=== PATIENT | female | born 1940 | race Caucasian/White ===

== ENCOUNTER 2016-08-06 14:40 | Inpatient (IN) | payer OTHER ==
[2016-08-06] MEDS ORDERED: ASPIRIN 81 MG CHEWABLE TABLETS PO ONE (14:54)
--- NOTE | 2016-08-06 14:54 | PDOC ---
History of Present Illness - General History Source: Patient, Old Records Exam Limitations: No Limitations - History of Present Illness Initial Comments: 08/06/16 14:55 The patient is a 76-year-old woman with a significant past medical history of hypertension, hypercholesterolemia, asthma, chronic obstructive pulmonary disease (inhaler PRN), and fatty liver who was sent to the emergency department by her [employer], Dr. Mello further evaluation of abnormal electrocardiogram changes today. Patient reports that she is in her usual state of health. She went to her primary care physician's office, Dr. Gabriel Zhao for a pre operative clearance for her cardiac catherization. She was informed that she had ST depression changes and was advised to present to the ER. Patient states that at baseline she gets short of breath on exertion and is unable to walk only but a few feet and occasionally experiences chest pain. No fever, chills, weakness, chest pain, lightheadedness, dizziness, palpitations, headaches, neck pain, visual changes, abdominal pain, nausea, vomiting, diarrhea. No urinary complaints. Allergies: Penicillin Past Surgical History: Right hips orthopedic surgery. Appendectomy. Social History: Never smoked. No ETOH and recreational drug use. Primary Care Physician: Dr. Gabriel Zhao [employer]: Dr. Robert Mello <Reyna York - Last Filed: 08/06/16 15:23> <Uriel Arvizu - Last Filed: 08/06/16 16:26> - General Chief Complaint: Shortness of Breath Stated Complaint: CHANGE IN EKG Time Seen by Provider: 08/06/16 14:52 Past History <Reyna York - Last Filed: 08/06/16 15:23> - Past Medical History Anemia: No Asthma: Yes Cancer: No Cardiac Disorders: No CVA: No COPD: Yes CHF: No Dementia: No Diabetes: Yes GI Disorders: Yes Disorders: No HTN: Yes Hypercholesterolemia: Yes Liver Disease: Yes (FATTY;HEPATOMEGALY) Seizures: No Thyroid Disease: No - Surgical History Abdominal Surgery: Yes (INTESTINAL OBSTR.) Appendectomy: Yes Cardiac Surgery: No Cholecystectomy: No Lung Surgery: No Neurologic Surgery: No Orthopedic Surgery: Yes (RIGHT HIP 01/2014) - Psycho/Social/Smoking Cessation Hx Suicidal Ideation: No Smoking History: Never smoked Have you smoked in the past 12 months: No If you are a former smoker, when did you quit?: 1989 Hx Alcohol Use: No Drug/Substance Use Hx: No Substance Use Type: None Hx Substance Use Treatment: No <Uriel Arvizu - Last Filed: 08/06/16 16:26> - Past Medical History Allergies/Adverse Reactions: Allergies Allergy/AdvReac Type Severity Reaction Status Date / Time Penicillins Allergy Mild Hives Verified 08/06/16 15:02 Home Medications: Ambulatory Orders Alendronate Na [Fosamax (Weekly)] 70 mg PO Q7D 08/15/13 Atenolol [Tenormin -] 25 mg PO DAILY 08/15/13 Atorvastatin Ca [Lipitor] 10 mg PO DAILY 08/15/13 Diazepam [Valium] 5 mg PO BID PRN 08/15/13 Montelukast Na [Singulair -] 10 mg PO DAILY 08/15/13 Potassium Chloride [K-Dur] 20 meq PO TID 08/15/13 Theophylline Anhydrous [Theophylline] 200 mg PO BID 08/15/13 Budesonide/Formeterol Fumarate [SYMBICORT 80/4.5mcg -] 2 inh IH BID #0 inhaler 08/21/13 Ascorbic Acid [Vitamin C -] 1,000 mg PO DAILY 11/07/13 Cholecalciferol (Vitamin D3) [Vitamin D3] 2,000 unit PO DAILY 11/07/13 Cyanocobalamin [Vitamin B12 -] 500 mcg PO DAILY 11/07/13 Folic Acid - 1 mg PO DAILY 11/07/13 Metformin HCl [Metformin HCl ER] 2 tab PO TID 11/07/13 Oxycodone HCl/Acetaminophen [Percocet 5-325 mg Tablet] 1 - 2 tab PO Q4H #30 tablet 11/16/13 Terbutaline Sulfate [Brethine -] 2.5 mg PO QID 01/16/14 Apixaban [Eliquis -] 5 mg PO BID #0 06/07/14 [place]-3 Fatty Acids/Fish Oil [Fish Oil 1,000 mg Softgel] 1,200 each PO DAILY #0 06/07/14 Vitamin E 400 unit PO DAILY #0 06/07/14 Albuterol Sulfate [Proair Hfa -] 1 - 2 inh PO QID 08/25/14 Cyanocobalamin Vit B-12 Inj. [Vitamin B12 Injection -] 1,000 mcg IJ MONTHLY Sulfasalazine 2 tab PO DAILY 08/25/14 Meclizine HCl [Verticalm] 25 mg PO DAILY PRN #5 tablet 03/19/16 Review of Systems - Review of Systems Constitutional: No: Chills, Fever Respiratory: Yes: Cough (chronic), Shortness of Breath Cardiac (ROS): Yes: Chest Pain. No: Edema All Other Systems: Reviewed and Negative <Uriel Arvizu - Last Filed: 08/06/16 16:26> *Physical Exam - Physical Exam Comments: 08/06/16 14:59 GENERAL: The patient is awake, alert, and fully oriented, in no acute distress. HEAD: Normal with no signs of trauma. EYES: Pupils equal, round and reactive to light, extraocular movements intact, sclera anicteric, conjunctiva clear with no pallor. ENT: Ears normal, nares patent, oropharynx clear without exudates. Moist mucous membranes. NECK: Normal range of motion, supple without lymphadenopathy, JVD, or masses. LUNGS: Scattered inspiratory and expiratory wheezes but no crackles. HEART: Regular rate and rhythm, normal S1 and S2 without murmur or rub. ABDOMEN: Soft/nontender/nondistended. BS wnl. No guarding or rebound. No palpable masses. No hepatosplenomegaly. EXTREMITIES: Normal range of motion, no edema. No clubbing or cyanosis. No cords, erythema, or tenderness. NEUROLOGICAL: Cranial nerves II through XII grossly intact. Normal speech. PSYCH: Normal mood, normal affect. SKIN: Warm, Dry, normal turgor, no rashes or lesions noted. <Reyna York - Last Filed: 08/06/16 15:23> Heart Score/ECG Review #1 ECG reviewed & interpreted by me at: 14:53 General ECG Interpretation: Sinus Rhythm, Normal Rate (94), Normal Intervals, No acute ischemic changes (ST depression in V4 through V6) Compared to previous ECG there are: Changes noted (c/w 03/21) <Uriel Arvizu - Last Filed: 08/06/16 16:26> ED Treatment Course - LABORATORY CBC & Chemistry Diagram: 08/06/16 15:12 08/06/16 15:12 <Uriel Arvizu - Last Filed: 08/06/16 16:26> Medical Decision Making - Medical Decision Making 08/06/16 15:09 A portion of this note was documented by scribe services under my direction. I have reviewed the details of the note, within reason, and agree with the documentation with the following case summary and management plan written by me. 76-year-old female with history of hypertension, high cholesterol, COPD, lupus anticoagulant and factor V Leiden presents from Dr. Zhao's office after she was found to have new ST depressions on routine EKG. The patient has known abnormal stress test, catheterization pending given her hypercoagulable disorders. She has baseline dyspnea on exertion and occasionally has chest pain , is not on oxygen at home for her COPD. Exam as noted. Will proceed with admission for further cardiac evaluation/management. Does not take aspirin at home. labs, ua ekg, cxr asa admission. Reviewed with Dr. Riojas at bedside, agrees with asa, recommends starting heparin tomorrow (took xarelto today), plan for cath 08/06/16 16:25 Troponin negative, remaining labs are within normal limits. Will proceed with plan for inpatient telemetry to Dr. Zhao. <Uriel Arvizu - Last Filed: 08/06/16 16:26> *DC/Admit/Observation/Transfer - Attestations Scribe Attestion: 08/06/16 15:00 Documentation prepared by Reyna York, acting as medical accounting clerk for Uriel Arvizu MD. <Reyna York - Last Filed: 08/06/16 15:23> - Discharge Dispostion Admit: Yes <Uriel Arvizu - Last Filed: 08/06/16 16:26> Diagnosis at time of Disposition: ST segment changes on electrocardiogram COPD (chronic obstructive pulmonary disease) Qualifiers: COPD type: unspecified COPD Qualified Code(s): J44.9 - Chronic obstructive pulmonary disease, unspecified - Discharge Dispostion Condition at time of disposition: Fair - Referrals Referrals: Gabriel Zhao MD [Primary Care Provider] -
[2016-08-06] MEDS ORDERED: ASPIRIN 81 MG CHEWABLE TABLETS ONE (15:13)
[2016-08-06 15:38] LABS: BASOPHIL 0.6 % (0-2.0); EOSINOPHIL 1.4 % (0-4.5); MCH 25.3 pg (25.7-33.7); MCHC 32.2 g/dl (32.0-36.0); MEAN CELL VOLUME 78.7 fl (80-96); NEUTROPHILS 67.2 % (42.8-82.8); PLATELET COUNT 180 K/MM3 (134-434); RDW 15.9 % (11.6-15.6); WHITE BLOOD COUNT 5.4 K/mm3 (4.0-10.0)
--- NOTE | 2016-08-06 15:57 | CON.CARD ---
Consult Consult Specialty:: Cardiology Referred by:: Dr Zhao Reason for Consultation:: CAD - History of Present Illness Chief Complaint: shortness of breath, ecg changes History of Present Illness: 76 yo F w sig PMH of HTN, DM, HLD, DVT (2013) in the setting of thrombophilia on systemic AC (s/p IVC filter prior to hip surgery), Heterozygote Factor V Leiden seen by Dr Tez Adamson in the past, elevated anti-cardiolipin, Lupus anticoagulant, and Iron deficiency anemia seen in Dr Zhao's office in the cardiology clinic for follow up found with SOB/JUAREZ for one week due to wheezing and recent URI, also found with ST depressions on ECG v4-v6. Sent to ER for evaluation. Previously an angiogram was recommended for coronary anatomy evaluation due to chronic chronic JUAREZ and occasional episodes of atypical CP in the setting of abnormal NST on 06/30/16 (small to moderate zone of reversible defect from the base to the apex of the anterior wall compatible with mild intensity ischemia) but this was deferred due to issues related to her Xarelto. Echo - 12/2015: Normal LV size and function (EF: 59%). Concentric LVH. Impaired diastolic function. Mild AI. - History Source History Provided By: Patient, Medical Record - Past Medical History Cardio/Vascular: Yes: HTN, Hyperlipdemia, Other (ASHD) Musculoskeletal: Yes: Chronic low back pain Endocrine: Yes: Diabetes Mellitus - Past Surgical History Past Surgical History: Yes: Appendectomy, Tonsillectomy - Alcohol/Substance Use Hx Alcohol Use: No - Smoking History Smoking history: Never smoked Have you smoked in the past 12 months: No If you are a former smoker, when did you quit?: 1989 Home Medications - Allergies Allergies/Adverse Reactions: Allergies Allergy/AdvReac Type Severity Reaction Status Date / Time Penicillins Allergy Mild Hives Verified 08/06/16 15:02 - Home Medications Home Medications: Ambulatory Orders Alendronate Na [Fosamax (Weekly)] 70 mg PO Q7D 08/15/13 Atenolol [Tenormin -] 25 mg PO DAILY 08/15/13 Atorvastatin Ca [Lipitor] 10 mg PO DAILY 08/15/13 Diazepam [Valium] 5 mg PO BID PRN 08/15/13 Montelukast Na [Singulair -] 10 mg PO DAILY 08/15/13 Potassium Chloride [K-Dur] 20 meq PO TID 08/15/13 Theophylline Anhydrous [Theophylline] 200 mg PO BID 08/15/13 Budesonide/Formeterol Fumarate [SYMBICORT 80/4.5mcg -] 2 inh IH BID #0 inhaler 08/21/13 Ascorbic Acid [Vitamin C -] 1,000 mg PO DAILY 11/07/13 Cholecalciferol (Vitamin D3) [Vitamin D3] 2,000 unit PO DAILY 11/07/13 Cyanocobalamin [Vitamin B12 -] 500 mcg PO DAILY 11/07/13 Folic Acid - 1 mg PO DAILY 11/07/13 Metformin HCl [Metformin HCl ER] 2 tab PO TID 11/07/13 Oxycodone HCl/Acetaminophen [Percocet 5-325 mg Tablet] 1 - 2 tab PO Q4H #30 tablet 11/16/13 Terbutaline Sulfate [Brethine -] 2.5 mg PO QID 01/16/14 Apixaban [Eliquis -] 5 mg PO BID #0 06/07/14 [place]-3 Fatty Acids/Fish Oil [Fish Oil 1,000 mg Softgel] 1,200 each PO DAILY #0 06/07/14 Vitamin E 400 unit PO DAILY #0 06/07/14 Albuterol Sulfate [Proair Hfa -] 1 - 2 inh PO QID 08/25/14 Cyanocobalamin Vit B-12 Inj. [Vitamin B12 Injection -] 1,000 mcg IJ MONTHLY Sulfasalazine 2 tab PO DAILY 08/25/14 Meclizine HCl [Verticalm] 25 mg PO DAILY PRN #5 tablet 03/19/16 Review of Systems - Review of Systems Constitutional: reports: No Symptoms, Chills Eyes: reports: No Symptoms HENT: reports: No Symptoms Neck: reports: No Symptoms Cardiovascular: reports: Shortness of Breath Respiratory: reports: No Symptoms Vital Signs: Vital Signs Temperature 98.0 F 08/06/16 14:40 Pulse Rate 102 H 08/06/16 14:40 Respiratory Rate 18 08/06/16 14:40 Blood Pressure 167/83 08/06/16 14:40 O2 Sat by Pulse Oximetry (%) 100 08/06/16 14:40 Constitutional: Yes: No Distress Eyes: Yes: WNL HENT: Yes: Atraumatic, Normocephalic Neck: Yes: Supple Respiratory: Yes: Rhonchi (bilateral with mild expiratory wheezes.) Gastrointestinal: Yes: Normal Bowel Sounds Renal/: Yes: WNL Cardiovascular: Yes: Regular Rate and Rhythm JVD: No Carotid Bruit: No PMI: Non-Displaced Heart Sounds: Yes: S1, S2 Musculoskeletal: Yes: WNL Extremities: Yes: WNL Integumentary: Yes: WNL - Other Data Labs, Other Data: CBC, BMP 08/06/16 15:12 Imaging - Results Chest X-ray: Pending EKG: Report Reviewed (nsr [address] depressions v4-v6.) Problem List - Problems (1) Unstable angina Assessment/Plan: Hold Xarelto. Start IV heparin tomorrow for bridging until cath. ASA. continue atenolol, increase imdur to 60 mg daily, add ranexa 500 mg bid. Plan is for transfer to [facility] for cath possible PCI thursday08/08/16. CXR, BNP, CPK/David x 3. Heme to comment on AC. If drug eluting stent is placed the patient will need ASA and Plavix for at least one month then would stop asa and continue plavix with Xarelto. Hold metformin before cath. Continue Amaryl. Consider Jardiance post PCI if CAD in light of recent data. Code(s): I20.0 - UNSTABLE ANGINA
[2016-08-06 15:59] LABS: ALBUMIN 3.8 g/dl (3.4-5.0); ANION GAP 9 (8-16); CALCIUM 9.8 mg/dL (8.5-10.1); CO2 27 mmol/L (21-32); COCKROFT - GAULT 87.7115; CREATININE 0.8 mg/dL (0.55-1.02); GLUCOSE,RANDOM 90 mg/dL (74-106); MAGNESIUM 1.5 mg/dL (1.8-2.4); SGOT/AST 17 U/L (15-37); SGPT/ALT 24 U/L (12-78)
[2016-08-06 16:03] LABS: ALK PHOS 120 U/L (45-117); BILIRUBIN,TOTAL 0.5 mg/dL (0.2-1.0); TOT PROT 7.3 g/dl (6.4-8.2); TROPONIN I < 0.02 ng/ml (0.00-0.05)
[2016-08-06 16:04] LABS: INR 1.57 (0.82-1.09); PROTHROMBIN TIME (PATIENT) 17.4 SEC (9.98-11.88)
[2016-08-06] MEDS ORDERED: HEPARIN NA (PORCINE) 5,000 UNITS/ML 1ML VIAL IVPUSH PRN ×2 (19:44)
[2016-08-06] MEDS: ATORVASTATIN CA 40 MG TABLET (FP) PO SCH (21:40)
[2016-08-06] MEDS: MONTELUKAST NA 10 MG TABLET PO SCH (21:40)
[2016-08-06] MEDS: INSULIN SLIDING SCALE (NOVOLOG) 1 VIAL SQ SCH (21:47)
[2016-08-06 22:00] LABS: TROPONIN I < 0.02 ng/ml (0.00-0.05)
[2016-08-07 01:34] VITALS: BMI 33.2
[2016-08-07] MEDS: INSULIN SLIDING SCALE (NOVOLOG) 1 VIAL SQ SCH ×4 (06:29→21:36)
[2016-08-07 07:39] LABS: BASOPHIL 0.8 % (0-2.0); EOSINOPHIL 2.4 % (0-4.5); MCH 26.3 pg (25.7-33.7); MCHC 33.8 g/dl (32.0-36.0); PLATELET COUNT 167 K/MM3 (134-434); RDW 15.6 % (11.6-15.6); WHITE BLOOD COUNT 6.1 K/mm3 (4.0-10.0)
--- NOTE | 2016-08-07 07:54 | HP ---
Admitting History and Physical - Admission History of Present Illness: 76 yo F w sig PMH of HTN, DM, HLD, DVT (2014) in the setting of thrombophilia on systemic AC (s/p IVC filter prior to hip surgery), Heterozygote Factor V Leiden seen by Dr Tez Adamson in the past, elevated anti-cardiolipin, Lupus anticoagulant, and Iron deficiency anemia ssen by dr monroy for follow up found with SOB/JUAREZ for one week due to wheezing and recent URI, also found with ST depressions on ECG v4-v6. Sent to ER for evaluation. This am pt ststes feels better--in bed no cp at rest - Past Medical History Cardiovascular: Yes: CAD (positive stress test), HTN, Hyperlipdemia, Other (ASHD ) Pulmonary: Yes: COPD Heme/Onc: Yes: B12 Deficiency, Other (DVT) Musculoskeletal: Yes: Chronic low back pain Endocrine: Yes: Diabetes Mellitus - Past Surgical History Past Surgical History: Yes: Appendectomy, Tonsillectomy - Smoking History Smoking history: Former smoker Have you smoked in the past 12 months: No If you are a former smoker, when did you quit?: 1989 - Alcohol/Substance Use Hx Alcohol Use: No Home Medications - Allergies Allergies/Adverse Reactions: Allergies Allergy/AdvReac Type Severity Reaction Status Date / Time Penicillins Allergy Mild Hives Verified 08/06/16 15:02 - Home Medications Home Medications: Ambulatory Orders Albuterol Sulfate Inhaler - [Ventolin Hfa Inhaler -] 2 inh PO Q6H PRN 08/06/16 Alendronate Sodium [Binosto] 70 mg PO WEEKLY 08/06/16 Atenolol [Tenormin -] 50 mg PO DAILY 08/06/16 Atorvastatin Ca [Lipitor] 20 mg PO HS 08/06/16 Cyanocobalamin (Vitamin B-12) [Cyanocobalamin Injection] 1,000 mcg IJ MONTHLY Folic Acid 1 mg PO DAILY 08/06/16 Glimepiride [Amaryl -] 4 mg PO DAILY@0700 08/06/16 Isosorbide Mononitrate [Isosorbide Mononitrate ER] 30 mg PO DAILY 08/06/16 Lisinopril [Prinivil -] 40 mg PO DAILY 08/06/16 Metformin HCl 500 mg PO BID 08/06/16 Montelukast Na [Singulair -] 10 mg PO HS 08/06/16 Nitroglycerin 0.4 mg SL ASDIR 08/06/16 [place]-3 Fatty Acids/Fish Oil [Eql [place]-3 Fish Oil 1,000 mg] 1 each PO BID 08/06 Rivaroxaban [Xarelto -] 20 mg PO DAILY 08/06/16 Sulfasalazine 500 mg PO BID 08/06/16 Terbutaline Sulfate 2.5 mg PO Q6H 08/06/16 Theophylline Anhydrous 200 mg PO BID 08/06/16 Physical Examination Vital Signs: Vital Signs Temperature 98.3 F 08/07/16 06:00 Pulse Rate 83 08/07/16 06:00 Respiratory Rate 18 08/07/16 06:00 Blood Pressure 122/65 08/07/16 06:00 O2 Sat by Pulse Oximetry (%) 94 L 08/06/16 21:00 Cardiovascular: Yes: Murmur, S1, S2 Respiratory: Yes: Rhonchi Gastrointestinal: Yes: Normal Bowel Sounds, Soft. No: Tenderness Edema: No Labs: CBC, BMP 08/07/16 05:35 Problem List - Problems (1) ST segment changes on electrocardiogram Assessment/Plan: STRESS TEST POSITIVE HEPARIN CONTINUE WITH CURRENT MEDS FOR CATH IN AM HOLD XARELTO Code(s): R94.31 - ABNORMAL ELECTROCARDIOGRAM [ECG] [EKG] (2) COPD (chronic obstructive pulmonary disease) Assessment/Plan: [facility] PULM CONSULT Code(s): J44.9 - CHRONIC OBSTRUCTIVE PULMONARY DISEASE, UNSPECIFIED Qualifiers : COPD type: unspecified COPD Qualified Code(s): J44.9 - Chronic obstructive pulmonary disease, unspecified (3) Diabetes Assessment/Plan: [facility] Code(s): E11.9 - TYPE 2 DIABETES MELLITUS WITHOUT COMPLICATIONS (4) Hypercoagulable state Assessment/Plan: HOLD XARELTO HEPARIN Code(s): D68.59 - OTHER PRIMARY THROMBOPHILIA
[2016-08-07 08:00] LABS: ALBUMIN 3.4 g/dl (3.4-5.0); ANION GAP 8 (8-16); CALCIUM 8.8 mg/dL (8.5-10.1); CO2 28 mmol/L (21-32); GLUCOSE,RANDOM 112 mg/dL (74-106)
[2016-08-07 08:09] LABS: ALK PHOS 104 U/L (45-117); BILIRUBIN,TOTAL 0.5 mg/dL (0.2-1.0); CHOLESTEROL 86 mg/dL (50-200); CREATININE 0.8 mg/dL (0.55-1.02); LDL CHOLESTEROL (ONLY SJRH) 39 mg/dL (5-100); SGOT/AST 15 U/L (15-37); SGPT/ALT 18 U/L (12-78); THYROID STIMULATING HORMONE 0.67 uIU/ml (0.358-3.74); TOT PROT 6.5 g/dl (6.4-8.2); TROPONIN I < 0.02 ng/ml (0.00-0.05)
[2016-08-07] MEDS ORDERED: PT OWN MED DRAWER 7, Y5N ONE ×2 (10:33→21:30)
[2016-08-07] MEDS: HEPARIN INFUSION - 500 ML IVPB SCH ×2 (10:45→19:45)
[2016-08-07] MEDS: ASPIRIN COATED 81 MG TABLET.EC PO SCH (10:55)
[2016-08-07] MEDS: FOLIC ACID 1 MG TABLET (FP) PO SCH (10:55)
[2016-08-07] MEDS: ISOSORBIDE MONONITRATE 60 MG TAB.SR.24H (FP) PO SCH (10:56)
[2016-08-07] MEDS: THEOPHYLLINE ANHYDROUS 200 MG CAP.ER.24H PO SCH (10:56)
[2016-08-07] MEDS: LISINOPRIL 20 MG TABLET (FP) PO SCH (10:56)
--- NOTE | 2016-08-07 13:23 | CON.PULM ---
Consult Consult Specialty:: PULM/CCM Referred by:: KATHIA Reason for Consultation:: SOB - History of Present Illness Chief Complaint: SOB /CP History of Present Illness: 76 F, HTN, DM, HLD, DVT (2013) due to thrombophilia on systemic AC (s/p IVC filter prior to hip surgery), and heterozygote Factor V Leiden, elevated anti- cardiolipin, Lupus anticoagulant, and Iron deficiency anemia. Reports having URI symptoms for over 1 1/2 weeks. Congested cough has been lingering. No fever or chills. No hemoptysis. Apparently found to have lateral ST segment depressions. CT : emphysematous changes /no acute process. - History Source History Provided By: Patient Limitations to Obtaining History: No Limitations - Past Medical History Cardio/Vascular: Yes: CAD (positive stress test), HTN, Hyperlipdemia, Other ( ASHD) Pulmonary: Yes: Bronchitis, COPD. No: O2 Dependent Musculoskeletal: Yes: Chronic low back pain Endocrine: Yes: Diabetes Mellitus - Past Surgical History Past Surgical History: Yes: Appendectomy, Tonsillectomy - Alcohol/Substance Use Hx Alcohol Use: No - Smoking History Smoking history: Former smoker Have you smoked in the past 12 months: No If you are a former smoker, when did you quit?: 1989 Home Medications - Allergies Allergies/Adverse Reactions: Allergies Allergy/AdvReac Type Severity Reaction Status Date / Time Penicillins Allergy Mild Hives Verified 08/06/16 15:02 - Home Medications Home Medications: Ambulatory Orders Albuterol Sulfate Inhaler - [Ventolin Hfa Inhaler -] 2 inh PO Q6H PRN 08/06/16 Alendronate Sodium [Binosto] 70 mg PO WEEKLY 08/06/16 Atenolol [Tenormin -] 50 mg PO DAILY 08/06/16 Atorvastatin Ca [Lipitor] 20 mg PO HS 08/06/16 Cyanocobalamin (Vitamin B-12) [Cyanocobalamin Injection] 1,000 mcg IJ MONTHLY Folic Acid 1 mg PO DAILY 08/06/16 Glimepiride [Amaryl -] 4 mg PO DAILY@0700 08/06/16 Isosorbide Mononitrate [Isosorbide Mononitrate ER] 30 mg PO DAILY 08/06/16 Lisinopril [Prinivil -] 40 mg PO DAILY 08/06/16 Metformin HCl 500 mg PO BID 08/06/16 Montelukast Na [Singulair -] 10 mg PO HS 08/06/16 Nitroglycerin 0.4 mg SL ASDIR 08/06/16 [place]-3 Fatty Acids/Fish Oil [Eql [place]-3 Fish Oil 1,000 mg] 1 each PO BID 08/06 Rivaroxaban [Xarelto -] 20 mg PO DAILY 08/06/16 Sulfasalazine 500 mg PO BID 08/06/16 Terbutaline Sulfate 2.5 mg PO Q6H 08/06/16 Theophylline Anhydrous 200 mg PO BID 08/06/16 Review of Systems - Review of Systems Constitutional: reports: Malaise, Weakness. denies: Chills, Fever, Night Sweats Eyes: reports: No Symptoms HENT: reports: No Symptoms Neck: reports: No Symptoms Cardiovascular: reports: Chest Pain, Shortness of Breath. denies: Edema, Palpitations Respiratory: reports: Cough, Snoring, SOB, SOB on Exertion, Wheezing. denies: Hemoptysis Gastrointestinal: reports: No Symptoms Genitourinary: reports: No Symptoms Breasts: reports: No Symptoms Reported Musculoskeletal: reports: No Symptoms Integumentary: reports: No Symptoms Neurological: reports: No Symptoms Endocrine: reports: No Symptoms Hematology/Lymphatic: reports: No Symptoms Psychiatric: reports: No Symptoms Physical Exam Vital Sings: Vital Signs Temperature 98.3 F 08/07/16 06:00 Pulse Rate 83 08/07/16 06:00 Respiratory Rate 18 08/07/16 06:00 Blood Pressure 122/65 08/07/16 06:00 O2 Sat by Pulse Oximetry (%) 94 L 08/06/16 21:00 Constitutional: Yes: Well Nourished, No Distress Eyes: Yes: Conjunctiva Clear HENT: Yes: Atraumatic, Normocephalic Neck: Yes: Supple, Trachea Midline Cardiovascular: Yes: Regular Rate and Rhythm Respiratory: Yes: Cough, On Nasal O2, Rhonchi. No: Accessory Muscle Use, Rales , Stridor, Tachypnea, Wheezes ...Inspection: Yes: WNL ...Clubbing: No Gastrointestinal: Yes: Normal Bowel Sounds, Soft, Abdomen, Obese Renal/: Yes: WNL Musculoskeletal: Yes: WNL Extremities: Yes: WNL Edema: No Peripheral Pulses WNL: Yes Integumentary: Yes: WNL Neurological: Yes: WNL, Alert, Oriented ...Motor Strength: WNL Psychiatric: Yes: WNL, Alert, Oriented Labs: CBC, BMP 08/07/16 05:35 08/07/16 05:35 Imaging - Results Chest X-ray: Report Reviewed, Image Reviewed Cat Scan: Report Reviewed, Image Reviewed Problem List - Problems (1) COPD (chronic obstructive pulmonary disease) Code(s): J44.9 - CHRONIC OBSTRUCTIVE PULMONARY DISEASE, UNSPECIFIED Qualifiers : COPD type: unspecified COPD Qualified Code(s): J44.9 - Chronic obstructive pulmonary disease, unspecified (2) Hypercoagulable state Code(s): D68.59 - OTHER PRIMARY THROMBOPHILIA (3) ST segment changes on electrocardiogram Code(s): R94.31 - ABNORMAL ELECTROCARDIOGRAM [ECG] [EKG] (4) Unstable angina Code(s): I20.0 - UNSTABLE ANGINA (5) Diabetes Code(s): E11.9 - TYPE 2 DIABETES MELLITUS WITHOUT COMPLICATIONS (6) History of total right hip replacement Code(s): Z96.641 - PRESENCE OF RIGHT ARTIFICIAL HIP JOINT (7) Hyperlipidemia LDL goal < 100 Code(s): E78.5 - HYPERLIPIDEMIA, UNSPECIFIED (8) Hypertension Code(s): I10 - ESSENTIAL (PRIMARY) HYPERTENSION (9) Vitamin deficiency Code(s): E56.9 - VITAMIN DEFICIENCY, UNSPECIFIED Assessment/Plan PLAN: Prednisone O2 as needed No ABX needed Brovana BID (Patient is on Breo at home) Continue Theophylline 400mg OQ Albuterol PRN IV heparin There is no Pulmonary contraindication for Cardiac cath tomorrow Will follow Thank you. Dr Sosa
--- NOTE | 2016-08-07 13:41 | PN ---
Progress Note, Physician Chief Complaint: sob tele neg History of Present Illness: 76 yo F w sig PMH of HTN, DM, HLD, DVT (2013) in the setting of thrombophilia on systemic AC (s/p IVC filter prior to hip surgery), Heterozygote Factor V Leiden seen by Dr Tez Adamson in the past, elevated anti-cardiolipin, Lupus anticoagulant, and Iron deficiency anemia seen in Dr Zhao's office in the cardiology clinic for follow up found with SOB/JUAREZ for one week due to wheezing and recent URI, also found with ST depressions on ECG v4-v6. Sent to ER for evaluation. Previously an angiogram was recommended for coronary anatomy evaluation due to chronic chronic JUAREZ and occasional episodes of atypical CP in the setting of abnormal NST on 06/30/16 (small to moderate zone of reversible defect from the base to the apex of the anterior wall compatible with mild intensity ischemia) but this was deferred due to issues related to her Xarelto. Echo - 12/2015: Normal LV size and function (EF: 59%). Concentric LVH. Impaired diastolic function. Mild AI. - Current Medication List Current Medications: Active Medications Arformoterol Tartrate (Brovana (Restricted To Pulmonology/Resp) -) 1 amp NEB BID JO Aspirin (Ecotrin -) 81 mg PO DAILY [facility] Last Admin: 08/07/16 10:55 Dose: 81 mg Atorvastatin Calcium (Lipitor -) 40 mg PO HS [facility] Last Admin: 08/06/16 21:40 Dose: 40 mg Folic Acid (Folic Acid -) 1 mg PO DAILY [facility] Last Admin: 08/07/16 10:55 Dose: 1 mg Heparin Sodium (Porcine) (Heparin -) 1,000 unit IVPUSH PRN PRN PRN Reason: Heparin Heparin Sodium (Porcine) (Heparin -) 5,000 unit IVPUSH PRN PRN PRN Reason: Heparin Heparin Sodium/Dextrose (Heparin Infusion -) 500 mls @ 16 mls/hr IVPB TITR JO ; 800 UNITS/HR PRN Reason: Protocol Last Admin: 08/07/16 10:45 Dose: 16 mls/hr Insulin Aspart (Novolog Vial Sliding Scale -) 1 vial SQ ACHS JO PRN Reason: Protocol Last Admin: 08/07/16 12:25 Dose: Not Given Isosorbide Mononitrate (Imdur -) 60 mg PO DAILY [facility] Last Admin: 08/07/16 10:56 Dose: 60 mg Lisinopril (Prinivil) 40 mg PO DAILY [facility] Last Admin: 08/07/16 10:56 Dose: 40 mg Montelukast Sodium (Singulair -) 10 mg PO HS [facility] Last Admin: 08/06/16 21:40 Dose: Not Given Prednisone (Deltasone -) 40 mg PO DAILY [facility] Sulfasalazine (Azulfidine En-Tabs -) 500 mg PO BID [facility] Last Admin: 08/07/16 10:55 Dose: 500 mg Theophylline (Kee-24) 400 mg PO DAILY [facility] Last Admin: 08/07/16 10:56 Dose: 400 mg - Objective Vital Signs: Vital Signs Temperature 97.9 F 08/07/16 10:00 Pulse Rate 85 08/07/16 10:00 Respiratory Rate 18 08/07/16 10:00 Blood Pressure 138/80 08/07/16 10:00 O2 Sat by Pulse Oximetry (%) 94 L 08/07/16 09:00 Constitutional: Yes: Well Nourished, No Distress Eyes: Yes: Conjunctiva Clear HENT: Yes: Atraumatic, Normocephalic Neck: Yes: Supple, Trachea Midline Cardiovascular: Yes: Regular Rate and Rhythm Respiratory: Yes: Poor Air Entry Gastrointestinal: Yes: Normal Bowel Sounds Extremities: Yes: WNL Edema: No Peripheral Pulses WNL: Yes Labs: CBC, BMP 08/07/16 05:35 08/07/16 05:35 INR, PTT INR 1.57 (0.82-1.09) H D 08/06/16 15:12 Problem List - Problems (1) Unstable angina Assessment/Plan: Holding Xarelto. Started on IV heparin for bridging until cath. ASA. continue atenolol, continue imdur 60 mg daily, ranexa 500 mg bid. Plan is for transfer to [facility] for cath possible PCI thursday08/08/16. CXR, BNP, CPK/David x 3 negative. Heme to comment on AC. If drug eluting stent is placed the patient will need ASA and Plavix for at least one month then would stop asa and continue plavix with Xarelto. Hold metformin before cath. Continue Amaryl. Consider Jardiance post PCI if CAD in light of recent data. Code(s): I20.0 - UNSTABLE ANGINA
[2016-08-07] MEDS: ARFORMOTEROL TARTRATE 15 MCG/2 ML VIAL NEB SCH ×2 (14:00→22:51)
[2016-08-07] MEDS: predniSONE 20 MG TABLET (UD) PO SCH (15:38)
--- NOTE | 2016-08-07 17:22 | EKG ---
Test Reason : Blood Pressure : / mmHG Vent. Rate : 092 BPM Atrial Rate : 092 BPM P-R Int : 144 ms QRS Dur : 092 ms QT Int : 376 ms P-R-T Axes : 074 039 070 degrees QTc Int : 464 ms NORMAL SINUS RHYTHM NONSPECIFIC ST ABNORMALITY ABNORMAL ECG WHEN COMPARED WITH ECG OF 06-AUG-2016 14:53, NO SIGNIFICANT CHANGE WAS FOUND Confirmed by AMENA RAYMOND MD (2013) on 08/07/2016 5:22:46 PM Referred By: ÁNGEL TIM Confirmed By:AMENA RAYMOND MD
--- NOTE | 2016-08-07 17:30 | EKG ---
Test Reason : Blood Pressure : / mmHG Vent. Rate : 094 BPM Atrial Rate : 094 BPM P-R Int : 144 ms QRS Dur : 092 ms QT Int : 358 ms P-R-T Axes : 069 027 060 degrees QTc Int : 447 ms NORMAL SINUS RHYTHM NONSPECIFIC ST ABNORMALITY ABNORMAL ECG WHEN COMPARED WITH ECG OF 19-MAR-2016 19:15, NO SIGNIFICANT CHANGE WAS FOUND Confirmed by AMENA RAYMOND MD ([id number]) on 08/07/2016 5:30:21 PM Referred By: Confirmed By:AMENA RAYMOND MD
[2016-08-07] MEDS ORDERED: INSULIN (NOVOLOG) ASPART 100 UNITS/ML 10ML VIAL ONE (21:30)
[2016-08-07] MEDS: MONTELUKAST NA 10 MG TABLET PO SCH (21:37)
[2016-08-07] MEDS: RANOLAZINE E.R. 500 MG TABLET (FP) PO SCH (21:37)
[2016-08-07] MEDS: ATORVASTATIN CA 40 MG TABLET (FP) PO SCH (21:37)
[2016-08-08] MEDS: HEPARIN INFUSION - 500 ML IVPB SCH ×2 (04:00→08:23)
[2016-08-08] MEDS: INSULIN SLIDING SCALE (NOVOLOG) 1 VIAL SQ SCH (06:05)
[2016-08-08 06:53] VITALS: TEMP 97.6
[2016-08-08 07:32] LABS: MCH 25.7 pg (25.7-33.7); MCHC 33.3 g/dl (32.0-36.0); MEAN CELL VOLUME 77.2 fl (80-96); MEAN PLT VOLUME 7.2 fl (7.5-11.1); PLATELET COUNT 186 K/MM3 (134-434); RDW 15.7 % (11.6-15.6); WHITE BLOOD COUNT 6.8 K/mm3 (4.0-10.0)
--- NOTE | 2016-08-08 08:46 | PN ---
Progress Note, Physician History of Present Illness: FEELS BETTER NO CP - Current Medication List Current Medications: Active Medications Arformoterol Tartrate (Brovana (Restricted To Pulmonology/Resp) -) 1 amp NEB BID [facility] Last Admin: 08/07/16 22:51 Dose: 1 amp Aspirin (Ecotrin -) 81 mg PO DAILY [facility] Last Admin: 08/07/16 10:55 Dose: 81 mg Atorvastatin Calcium (Lipitor -) 40 mg PO HS [facility] Last Admin: 08/07/16 21:37 Dose: 40 mg Folic Acid (Folic Acid -) 1 mg PO DAILY [facility] Last Admin: 08/07/16 10:55 Dose: 1 mg Heparin Sodium (Porcine) (Heparin -) 1,000 unit IVPUSH PRN PRN PRN Reason: Heparin Last Admin: 08/08/16 08:17 Dose: 1,000 unit Heparin Sodium (Porcine) (Heparin -) 5,000 unit IVPUSH PRN PRN PRN Reason: Heparin Last Admin: 08/07/16 19:48 Dose: 5,000 unit Heparin Sodium/Dextrose (Heparin Infusion -) 500 mls @ 16 mls/hr IVPB TITR JO ; 800 UNITS/HR PRN Reason: Protocol Last Admin: 08/08/16 08:23 Dose: 21 mls/hr Insulin Aspart (Novolog Vial Sliding Scale -) 1 vial SQ ACHS [facility] PRN Reason: Protocol Last Admin: 08/08/16 06:05 Dose: Not Given Isosorbide Mononitrate (Imdur -) 60 mg PO DAILY [facility] Last Admin: 08/07/16 10:56 Dose: 60 mg Lisinopril (Prinivil) 40 mg PO DAILY [facility] Last Admin: 08/07/16 10:56 Dose: 40 mg Montelukast Sodium (Singulair -) 10 mg PO HS [facility] Last Admin: 08/07/16 21:37 Dose: 10 mg Prednisone (Deltasone -) 40 mg PO DAILY [facility] Last Admin: 08/07/16 15:38 Dose: 40 mg Ranolazine (Ranexa -) 500 mg PO BID [facility] Last Admin: 08/07/16 21:37 Dose: 500 mg Sulfasalazine (Azulfidine En-Tabs -) 500 mg PO BID [facility] Last Admin: 08/07/16 21:37 Dose: 500 mg Theophylline (Kee-24) 400 mg PO DAILY [facility] Last Admin: 08/07/16 10:56 Dose: 400 mg - Objective Vital Signs: Vital Signs Temperature 97.6 F 08/08/16 06:00 Pulse Rate 91 H 08/08/16 06:00 Respiratory Rate 20 08/08/16 06:00 Blood Pressure 134/73 08/08/16 06:00 O2 Sat by Pulse Oximetry (%) 93 L 08/07/16 21:00 Cardiovascular: Yes: Regular Rate and Rhythm Respiratory: Yes: Regular, CTA Bilaterally Gastrointestinal: Yes: Normal Bowel Sounds, Soft Musculoskeletal: Yes: Muscle Weakness Edema: No Labs: CBC, BMP 08/08/16 05:40 08/07/16 05:35 INR, PTT INR 1.57 (0.82-1.09) H D 08/06/16 15:12 Problem List - Problems (1) ST segment changes on electrocardiogram Assessment/Plan: STRESS TEST POSITIVE HEPARIN CONTINUE WITH CURRENT MEDS FOR CATH TODAY HOLD XARELTO Code(s): R94.31 - ABNORMAL ELECTROCARDIOGRAM [ECG] [EKG] (2) COPD (chronic obstructive pulmonary disease) Assessment/Plan: [facility] CONS[facility] Code(s): J44.9 - CHRONIC OBSTRUCTIVE PULMONARY DISEASE, UNSPECIFIED Qualifiers : COPD type: unspecified COPD Qualified Code(s): J44.9 - Chronic obstructive pulmonary disease, unspecified (3) Diabetes Assessment/Plan: [facility] SS Code(s): E11.9 - TYPE 2 DIABETES MELLITUS WITHOUT COMPLICATIONS (4) Hypercoagulable state Assessment/Plan: HOLD XARELTO HEPARIN Code(s): D68.59 - OTHER PRIMARY THROMBOPHILIA
[2016-08-08] MEDS ORDERED: PT OWN MED DRAWER 7, Y5N ONE (09:37)
[2016-08-08] MEDS: LISINOPRIL 20 MG TABLET (FP) PO SCH (09:54)
[2016-08-08] MEDS: RANOLAZINE E.R. 500 MG TABLET (FP) PO SCH (09:55)
[2016-08-08] MEDS: ASPIRIN COATED 81 MG TABLET.EC PO SCH (09:55)
[2016-08-08] MEDS: predniSONE 20 MG TABLET (UD) PO SCH (09:55)
[2016-08-08] MEDS: ISOSORBIDE MONONITRATE 60 MG TAB.SR.24H (FP) PO SCH (09:55)
[2016-08-08] MEDS: THEOPHYLLINE ANHYDROUS 200 MG CAP.ER.24H PO SCH (10:00)
[2016-08-08 10:29] VITALS: BP 134/74; PULSE 95
[2016-08-08] MEDS: FOLIC ACID 1 MG TABLET (FP) PO SCH (11:04)
== END 2016-08-08 10:41 | disposition short-term general hospital (02) | DRG 303 ==
LOC: JER 14:40 → JERBED 16:05 → J4S 19:50
PROVIDERS: ADMIT Family Medicine; ATTEND Family Medicine
DX: I25.110 Atherosclerotic heart disease of native coronary artery with unstable angina pectoris (principal); D68.51 Activated protein C resistance; E53.0 Riboflavin deficiency; D68.59 Other primary thrombophilia; J45.909 Unspecified asthma, uncomplicated; J44.9 Chronic obstructive pulmonary disease, unspecified; E11.9 Type 2 diabetes mellitus without complications; K76.0 Fatty (change of) liver, not elsewhere classified; I10 Essential (primary) hypertension; E78.5 Hyperlipidemia, unspecified; M54.5 Low back pain; R94.31 Abnormal electrocardiogram [ECG] [EKG]; D50.9 Iron deficiency anemia, unspecified; Z96.641 Presence of right artificial hip joint; Z86.718 Personal history of other venous thrombosis and embolism; Z87.891 Personal history of nicotine dependence
CPT/HCPCS: 36415; 71010-TC; 71250-TC; 80053; 80061; 82272; 82550; 82553; 83036; 83721; 83735; 83880; 84443; 84484; 85025; 85027; 85610; 85730; 93005; 93010; 94640; 99285-25; J1644

== ENCOUNTER 2019-05-30 15:59 | Emergency (ER) | payer OTHER ==
--- NOTE | 2019-05-30 16:11 | PDOC ---
Rapid Medical Evaluation Medical Evaluation: Allergies Allergy/AdvReac Type Severity Reaction Status Date / Time Penicillins Allergy Mild Hives Verified 08/06/16 15:02 I have performed a brief in-person evaluation of this patient. The patient presents with a chief complaint of: sent by PCP for admission for painless hematuria from last night; denies fever, abd pain, flank pain, dysuria ; is on Xarelto for DVT (last took today) Pertinent physical exam findings: In NAD I have ordered the following: Labs The patient will proceed to the ED for further evaluation. 05/30/19 16:09
[2019-05-30 16:26] VITALS: TEMP 98.1; BMI 34.5
--- NOTE | 2019-05-30 18:04 | PDOC ---
History of Present Illness - General Chief Complaint: Hematuria Stated Complaint: SENT BY PCP/HEMATURIA Time Seen by Provider: 05/30/19 16:08 - History of Present Illness Initial Comments: 05/30/19 18:04 Ms. Soto is an 79 yo female w/ pmh of HTN, HLD, asthma, COPD, fatty liver, s/ p bowel resection for "blockage," on eliquis for chronic DVT who presents for evaluation of 1 day history of hematuria. Patient reports she has had no pain however presented to PCP today due to her symptoms; PCP sent her to ED for further evaluation. Patient denies any other complaints at this time. The patient denies chest pain, shortness of breath, headache and dizziness. Denies fever, chills, nausea, vomit, diarrhea and constipation. Denies dysuria, frequency, and urgency. Allergies: Penicillin Past History - Past Medical History Allergies/Adverse Reactions: Allergies Allergy/AdvReac Type Severity Reaction Status Date / Time Penicillins Allergy Mild Hives Verified 08/06/16 15:02 Home Medications: Ambulatory Orders Atenolol [Tenormin -] 25 mg PO DAILY 08/06/16 Atorvastatin Ca [Lipitor] 20 mg PO HS 08/06/16 Folic Acid 1 mg PO DAILY 08/06/16 Isosorbide Mononitrate [Isosorbide Mononitrate ER] 30 mg PO DAILY 08/06/16 Lisinopril [Prinivil -] 40 mg PO DAILY 08/06/16 Montelukast Na [Singulair -] 10 mg PO HS 08/06/16 Rivaroxaban [Xarelto -] 20 mg PO DAILY 08/06/16 Sulfasalazine 500 mg PO BID 08/06/16 Terbutaline Sulfate 2.5 mg PO Q6H PRN 08/06/16 Theophylline Anhydrous 200 mg PO BID 08/06/16 Albuterol Sulfate [Proair Respiclick] 90 mcg IH PRN PRN 05/30/19 Fluticasone/Vilanterol [Breo Ellipta 100-25 Mcg INH] 1 each IH DAILY 05/30/19 Insulin Detemir [Levemir Flextouch] 100 unit SQ ASDIR 05/30/19 Levocetirizine Dihydrochloride 5 mg PO DAILY 05/30/19 Melatonin 5 mg PO DAILY 05/30/19 Oxycodone HCl/Acetaminophen [Oxycodone-Acetaminophen 5-325] 1 each PO BID Potassium Chloride [Klor-Con] 20 meq PO BID 05/30/19 Anemia: No Asthma: Yes Cancer: No Cardiac Disorders: No CVA: No COPD: Yes CHF: No Dementia: No Diabetes: Yes GI Disorders: Yes Disorders: No HTN: Yes Hypercholesterolemia: Yes Liver Disease: Yes (FATTY;HEPATOMEGALY) Seizures: No Thyroid Disease: No - Surgical History Abdominal Surgery: Yes (INTESTINAL OBSTR.) Appendectomy: Yes Cardiac Surgery: No Cholecystectomy: No Lung Surgery: No Neurologic Surgery: No Orthopedic Surgery: Yes (RIGHT HIP 01/2014) - Psycho Social/Smoking Cessation Hx Smoking History: Unknown if ever smoked Have you smoked in the past 12 months: No If you are a former smoker, when did you quit?: 1989 Information on smoking cessation initiated: No Hx Alcohol Use: No Drug/Substance Use Hx: No Substance Use Type: None Hx Substance Use Treatment: No Review of Systems - Review of Systems Comments:: 05/30/19 18:19 GENERAL/CONSTITUTIONAL: No fever or chills. No weakness. HEAD, EYES, EARS, NOSE AND THROAT: No change in vision. No ear pain or discharge. No sore throat. CARDIOVASCULAR: No chest pain or shortness of breath RESPIRATORY: No cough, wheezing, or hemoptysis. GASTROINTESTINAL: No nausea, vomiting, diarrhea or constipation. GENITOURINARY: +1 day history of hematuria as described. No dysuria or frequency. MUSCULOSKELETAL: No joint or muscle swelling or pain. No neck or back pain. SKIN: No rash NEUROLOGIC: No headache, vertigo, loss of consciousness, or change in strength/ sensation. ENDOCRINE: No increased thirst. No abnormal weight change HEMATOLOGIC/LYMPHATIC: No anemia, easy bleeding, or history of blood clots. ALLERGIC/IMMUNOLOGIC: No hives or skin allergy. *Physical Exam - Vital Signs Last Vital Signs Temp Pulse Resp BP Pulse Ox 98.1 F 98 H 16 149/66 93 L 05/30/19 16:24 05/30/19 16:24 05/30/19 16:24 05/30/19 16:24 05/30/19 16:24 - Physical Exam 05/30/19 18:19 GENERAL: Awake, alert, and fully oriented, in no acute distress HEAD: No signs of trauma, normocephalic, atraumatic EYES: PERRLA, EOMI, sclera anicteric, conjunctiva clear ENT: Auricles normal inspection, hearing grossly normal, nares patent, oropharynx clear without exudates. Moist mucosa NECK: Normal ROM, supple, no lymphadenopathy, JVD, or masses LUNGS: No distress, speaks full sentences, clear to auscultation bilaterally HEART: Regular rate and rhythm, normal S1 and S2, no murmurs, rubs or gallops, peripheral pulses normal and equal bilaterally. ABDOMEN: +Patient denies any TTP however noted to be guarding diffusely. Soft, normoactive bowel sounds. No rebound. No masses EXTREMITIES: Normal inspection, Normal range of motion, no edema. No clubbing or cyanosis. NEUROLOGICAL: Cranial nerves II through XII grossly intact. Normal speech, normal gait, no focal sensorimotor deficits SKIN: Warm, Dry, normal turgor, no rashes or lesions noted. ED Treatment Course - LABORATORY CBC & Chemistry Diagram: 05/30/19 17:43 05/30/19 17:43 Medical Decision Making - Medical Decision Making 05/30/19 18:22 Ms. Soto is an 79 yo female w/ pmh as described who presents for evaluation of hematuria as described. Patient has no complaints however noted to be guarding upon exam. Will evaluate with laboratory analysis as well as UA and imaging. 05/30/19 18:[address] abd/pelvis for r/o acute process. Patient signed out to Dr. Yoon for further evaluation Discharge - Discharge Information Problems reviewed: Yes Clinical Impression/Diagnosis: Hematuria Qualifiers: Hematuria type: gross Qualified Code(s): R31.0 - Gross hematuria - Follow up/Referral Referrals: Gabriel Zhao MD [Primary Care Provider] - - Patient Discharge Instructions - Post Discharge Activity
[2019-05-30 18:09] LABS: BASO % 1.2 % (0-2.0); EOS % 1.2 % (0-4.5); HEMATOCRIT 36.2 % (32.4-45.2); HEMOGLOBIN 11.7 GM/dL (10.7-15.3); LYMPH % 19.7 % (8-40); MCH 25.9 pg (25.7-33.7); MCHC 32.3 g/dl (32.0-36.0); MEAN CELL VOLUME 80.2 fl (80-96); MEAN PLT VOLUME 6.8 fl (7.5-11.1); MONO % 6.9 % (3.8-10.2); PLATELET COUNT 184 K/MM3 (134-434); RBC 4.51 M/mm3 (3.60-5.2); RDW 15.8 % (11.6-15.6); WHITE BLOOD COUNT 6.9 K/mm3 (4.0-10.0)
[2019-05-30 18:22] LABS: INR 1.34 (0.83-1.09); PROTHROMBIN TIME (PATIENT) 15.8 SEC (9.7-13.0)
[2019-05-30 18:24] LABS: ACTIVATED PTT 46.2 SECONDS (25.2-36.5)
[2019-05-30 18:31] LABS: ALBUMIN 3.8 g/dl (3.4-5.0); BILIRUBIN,TOTAL 0.5 mg/dL (0.2-1); CALCIUM 10.1 mg/dL (8.5-10.1); CREATININE 1.3 mg/dL (0.55-1.3); POTASSIUM 3.4 mmol/L (3.5-5.1); TOT PROT 7.4 g/dl (6.4-8.2)
--- NOTE | 2019-05-30 18:42 | PDOC ---
Attending Attestation - Resident Resident Name: Gaurang Olivares - ED Attending Attestation I have performed the following: I have examined & evaluated the patient, The case was reviewed & discussed with the resident, I agree w/resident's findings & plan, Exceptions are as noted - HPI HPI: 05/30/19 18:42 79y hx of htn, hld, asthma, copd, fatty liver, sp bowel resection on eliquis for chronic dvt presents with a complaint of 1 day of hematuria the patient denies any associated abdominal pain, back pain, fever, chills, nausea, vomiting. The patient did visit her primary care doctor who noticed she had some flank pain so sent to the ER for evaluation. Patient notes that her urine was more red appearing yesterday todays is more brownish. Exam: GENERAL: The patient is awake, alert, and fully oriented, Nontoxic - in no acute distress. LUNGS: Breath sounds equal, clear to auscultation bilaterally. No wheezes, no rhonchi, no rales. HEART: Regular rate and rhythm, normal S1 and S2 without murmur, rub or gallop. ABDOMEN: Soft, nontender, No guarding, no rebound. No CVA tenderness Differential for the patient's hematuria with flank pain continues consider possible kidney stone, UTI The patient's blood work was reviewed no signs of anemia, her creatinine is normal Awaiting UA to rule out UTI If no UTI anticipate CTA to screen for kidney stone versus alternative cause for hematuria. Patient's vitals noted for mild hypoxia at 93 this is approximately patient's baseline for her COPD. She has no shortness of breath or respiratory complaints - Physicial Exam PE: 06/02/19 17:26 see above - Medical Decision Making 05/30/19 19:34 pts labs reviewed ua without signs of UTI awiating CT case signed out to evening tem to fu with results and dispo pt. if neg stone or other acute pathology anticipate referral to uro for eval of hematuria 06/02/19 17:30
[2019-05-30 18:56] LABS: EPI CELLS 4.8 /HPF (0-5/HPF); HYALINE CASTS 1 /lpf (0-8); URINE APPEARANCE TURBID; URINE BACTERIA 61.9 /hpf (NEGATIVE); URINE BILIRUBIN NEGATIVE (NEGATIVE); URINE COLOR ORANGE; URINE GLUCOSE (UA) NEGATIVE (NEGATIVE); URINE KETONE NEGATIVE (NEGATIVE); URINE LEUK ESTERASE 2+ (NEGATIVE); URINE NITRITE NEGATIVE (NEGATIVE); URINE PROTEIN 2+ (NEGATIVE); URINE RBC 1060 /hpf (0-4); URINE UROBILINOGEN 0.2 mg/dL (0.2-1.0); URINE WBC 11 /hpf (0-5)
[2019-05-30 19:57] VITALS: BP 145/84; PULSE 87
--- NOTE | 2019-05-30 20:07 | PDOC ---
*Physical Exam - Vital Signs Last Vital Signs Temp Pulse Resp BP Pulse Ox 98.1 F 87 20 145/84 95 05/30/19 16:24 05/30/19 19:55 05/30/19 19:55 05/30/19 19:55 05/30/19 19:55 ED Treatment Course - LABORATORY CBC & Chemistry Diagram: 05/30/19 17:43 05/30/19 17:43 - ADDITIONAL ORDERS Additional order review: Laboratory Results 05/30/19 05/30/19 05/30/19 17:43 17:43 17:43 PT with INR 15.80 H INR 1.34 H PTT (Actin FS) 46.2 H Sodium 142 Potassium 3.4 L Chloride 108 H Carbon Dioxide 26 Anion Gap 9 BUN 16.0 Creatinine 1.3 Est GFR (CKD-EPI)AfAm 44.87 Est GFR (CKD-EPI)NonAf 38.71 Random Glucose 153 H Calcium 10.1 Total Bilirubin 0.5 AST 16 ALT 33 Alkaline Phosphatase 132 H Total Protein 7.4 Albumin 3.8 Urine Color Harriet Urine Appearance Turbid Urine pH 5.0 Ur Specific [place] 1.012 Urine Protein 2+ H Urine Glucose (UA) Negative Urine Ketones Negative Urine Blood 3+ H Urine Nitrite Negative Urine Bilirubin Negative Urine Urobilinogen 0.2 Ur Leukocyte Esterase 2+ H Urine WBC (Auto) 11 Urine RBC (Auto) 1060 Urine Casts (Auto) 1 U Epithel Cells (Auto) 4.8 Urine Bacteria (Auto) 61.9 05/30/19 17:43 RBC 4.51 MCV 80.2 MCHC 32.3 RDW 15.8 H MPV 6.8 L Neutrophils % 71.0 D Lymphocytes % 19.7 D Monocytes % 6.9 Eosinophils % 1.2 Basophils % 1.2 Medical Decision Making - Medical Decision Making 05/30/19 20:07 Pt signed out to me by Dr. Olivares. 79F who presents with painless hematuria pending CTAP. 05/30/19 21:32 CTAP Impression: In comparison to a 2014 CT exam development of a 1 x 0.7 cm calculus is seen within the left renal pelvis with resultant minimal to mild hydronephrosis. Apparent development of a nonspecific 1 cm right hepatic lobe hypodense focus is seen. Correlation with 2 month follow-up CT or MRI is suggested. Interval insertion of an infrarenal inferior vena cava filter is noted. Mild splenomegaly as on the prior study. Stable 1 cm splenic hypodense focus probably representing a hemangioma or cyst. Dr. Carroll, urology, paged. 05/30/19 21:39 Case d/w Dr. Carroll who recommends outpatient treatment if patient is not in pain. Patient reassessed and is not in pain. Will d/c with urology f/u. Discharge - Discharge Information Problems reviewed: Yes Clinical Impression/Diagnosis: Nephrolithiasis Hematuria Qualifiers: Hematuria type: gross Qualified Code(s): R31.0 - Gross hematuria Condition: Good Disposition: HOME - Admission No - Follow up/Referral Referrals: Gabriel Zhao MD [Primary Care Provider] - Qasim Carroll MD [Staff Physician] - - Patient Discharge Instructions Patient Printed Discharge Instructions: DI for Kidney Stones Additional Instructions: Your ER visit is not complete until your follow up with your primary care physician and urologist (Dr. Carroll). Please follow up with your primary care physician in 1-[address] Carroll' office tomorrow morning and schedule an appointment. Please let them know that you came to the ER and need to follow up. Please return to the ER if you have any signs or symptoms of chest pain, shortness of breath, uncontrollable fever, chills, nausea, vomiting, numbness, tingling, or weakness in any part of your body, changes in vision, or slurred speech. Please return to the ER if symptoms persist, worsen, or new symptoms arise. - Post Discharge Activity
== END 2019-05-30 21:56 | disposition home or self-care (01) ==
LOC: JER 15:59
DX: N13.2 Hydronephrosis with renal and ureteral calculous obstruction (principal); R31.0 Gross hematuria; I10 Essential (primary) hypertension; E78.5 Hyperlipidemia, unspecified; J44.9 Chronic obstructive pulmonary disease, unspecified; J45.998 Other asthma; I82.509 Chronic embolism and thrombosis of unspecified deep veins of unspecified lower extremity; Z79.01 Long term (current) use of anticoagulants; K76.0 Fatty (change of) liver, not elsewhere classified; Z87.19 Personal history of other diseases of the digestive system; Z90.49 Acquired absence of other specified parts of digestive tract; Z88.0 Allergy status to penicillin
CPT/HCPCS: 36415; 71046-TC-FY; 74176-TC; 80053; 81003; 85025; 85610; 85730; 87086; 87186; 99285-25